=== PATIENT | male | born 1970 | race Caucasian/White ===

== ENCOUNTER 2017-02-05 06:52 | Inpatient (IN) | payer BC ==
[~2017-02-05] VITALS: Ht 182.9 cm; Wt 111.7 kg
[~2017-02-05 06:52] MED LIST: DEPAKOTE ER250 M1 PO; FLA500 PO; LAC PO; LEVOFLOXACIN500 M1 PO; MOT400 PO
[2017-02-05 07:44] LABS: PLATELET COUNT 214 x10^3mcL (130-400); RED CELL DISTRIBUTION WIDTH 12.1 % (11.5-14.5)
[2017-02-05 07:56] LABS: CARBON DIOXIDE 23.9 mmol/L (21-32); CHLORIDE SERUM 106 mmol/L (98-107); CREATININE SERUM 1.1 mg/dL (0.7-1.3); GFR1 > 60 mL/min; GLUCOSE SERUM 121 mg/dL (74-106); POTASSIUM SERUM 4.9 mmol/L (3.5-5.1); SODIUM SERUM 141 mmol/L (136-145)
[2017-02-05 08:08] LABS: ALKALINE PHOSPHATASE 102 U/L (46-116); ALT/SGPT 70 U/L (16-63); AST/SGOT 35 U/L (15-37); TOTAL PROTEIN, SERUM 7.3 g/dL (6.4-8.2)
[2017-02-05 09:33] LABS: BAND NEUTROPHIL 18 % (0-10); BASOPHIL 0 % (0-2); MONOCYTE 5 % (0-7); SEGMENTED NEUTROPHILS 72 % (37-75)
[2017-02-05] MEDS ORDERED: RISPERDAL0.25 MG (10:13)
[2017-02-05] MEDS ORDERED: LAMICTAL CD5 MG (10:13)
[2017-02-05] MEDS ORDERED: ATIVAN0.5 M1 (10:13)
[2017-02-05 13:38] VITALS: BP 122/76
[2017-02-05 13:58] VITALS: BP 122/76
[2017-02-05 15:08] LABS: PHOSPHOROUS 2.3 mg/dL (2.5-4.9); T3 TOTAL 1.22 ng/mL
[2017-02-05 15:10] LABS: CHOLESTEROL/HDL RATIO 3.4; MAGNESIUM 1.7 mg/dL (1.8-2.4)
[2017-02-05 15:24] LABS: FREE T4 1.23 ng/dL (0.76-1.46); FREE THYROXINE INDEX 3.3 ug/dL (1.4-4.5)
[2017-02-05 17:11] LABS: UA SPECIFIC GRAVITY 1.025 (1.005-1.035); microscopic required? YES; urine erythrocyte NEGATIVE (NEGATIVE)
[2017-02-05 18:47] VITALS: BP 128/86
[2017-02-05 21:23] LABS: AMPHETAMINE QUAL UR NONE DETECTED (NEG <=1000)
[2017-02-05 22:28] VITALS: BP 128/84
[2017-02-06] VITALS: Ht 182.9 cm; Wt 111.7 kg
[2017-02-06 06:07] VITALS: BP 146/86
[2017-02-06 07:17] LABS: BASOPHIL % 0.3 % (0-2); PLATELET COUNT 194 x10^3mcL (130-400); RED CELL DISTRIBUTION WIDTH 12.6 % (11.5-14.5)
[2017-02-06 07:50] LABS: CALCIUM 7.4 mg/dL (8.5-10.1); CHLORIDE SERUM 106 mmol/L (98-107); GFR1 > 60 mL/min; GLUCOSE SERUM 113 mg/dL (74-106); POTASSIUM SERUM 3.7 mmol/L (3.5-5.1); SODIUM SERUM 138 mmol/L (136-145)
[2017-02-06 10:30] VITALS: BP 124/82
[2017-02-06 13:12] VITALS: BP 138/87
[2017-02-06] MEDS ORDERED: FLA500 PO ×2 (18:01→18:02)
[2017-02-06 18:07] VITALS: BP 118/64
[2017-02-06 19:09] VITALS: BP 118/64
[2017-02-06] MEDS ORDERED: ZOFRAN ODT4 MG SL (19:44)
== END 2017-02-06 20:02 | disposition home or self-care (01) | DRG 392 ==
LOC: ED 06:52 → DU 10:43
PROVIDERS: Emergency Medicine; ADMIT Family Medicine
DX: A08.4 Viral intestinal infection, unspecified (principal); E86.0 Dehydration; E83.42 Hypomagnesemia; E83.39 Other disorders of phosphorus metabolism; E78.5 Hyperlipidemia, unspecified; F31.9 Bipolar disorder, unspecified; Z68.33 Body mass index [BMI] 33.0-33.9, adult
CPT/HCPCS: 80307; 83880; 84439; 87046; 87046-59; J1200; J1885; J1956; J2405; J2765; J3490; J7030; Q0092; Q0163; Q9966; Q9967

== ENCOUNTER 2018-02-28 12:24 | Emergency (ER) | payer BC ==
[~2018-02-28] VITALS: Ht 182.9 cm; Wt 97.1 kg
[~2018-02-28 12:24] MED LIST changes: +ATIVAN0.5 M1; +LAMICTAL CD5 MG; +RISPERDAL0.25 MG; +ZOFRAN ODT4 MG SL
[2018-02-28 12:29] VITALS: Ht 182.9 cm; Wt 97.1 kg
[2018-02-28 13:06] LABS: BASOPHIL % 0.5 % (0-2); PLATELET COUNT 252 x10^3mcL (130-400); RED CELL DISTRIBUTION WIDTH 13.4 % (11.5-14.5)
[2018-02-28 13:18] LABS: CARBON DIOXIDE 23.8 mmol/L (21-32); CHLORIDE SERUM 104 mmol/L (98-107); GFR1 > 60 mL/min; GLUCOSE SERUM 112 mg/dL (74-106); POTASSIUM SERUM 4.2 mmol/L (3.5-5.1); SODIUM SERUM 139 mmol/L (136-145)
[2018-02-28 13:22] LABS: ALBUMIN 4.1 g/dL (3.4-5.0); ALKALINE PHOSPHATASE 93 U/L (46-116); ALT/SGPT 37 U/L (16-63); AMYLASE 72 U/L (25-115); AST/SGOT 20 U/L (15-37); BILIRUBIN TOTAL 0.4 mg/dL (0.20-1.00); LIPASE 234 IU/L (73-393); TOTAL PROTEIN, SERUM 7.8 g/dL (6.4-8.2)
[2018-02-28 13:28] LABS: UA SPECIFIC GRAVITY <=1.005 (1.005-1.035); microscopic required? YES; urine erythrocyte TRACE (NEGATIVE)
[2018-02-28 14:04] VITALS: BP 119/79
== END 2018-02-28 14:04 | disposition home or self-care (01) ==
LOC: ED 12:24
PROVIDERS: Emergency Medicine
DX: K65.4 Sclerosing mesenteritis (principal); F31.9 Bipolar disorder, unspecified; Z88.1 Allergy status to other antibiotic agents; Z88.5 Allergy status to narcotic agent; Z88.6 Allergy status to analgesic agent
CPT/HCPCS: 83880; J3010; J7030

== ENCOUNTER 2018-10-05 14:57 | Inpatient (IN) | payer BC ==
[~2018-10-05] VITALS: Ht 182.9 cm; Wt 103.4 kg
[2018-10-05 15:03] VITALS: Ht 182.9 cm; Wt 103.4 kg
--- NOTE | 2018-10-05 15:09 | NUR ---
NO SOB NOTED, C/O CHEST PAIN, PT CAME FROM URGENT CARE. EKG DONE, SHOWN TO ER MD.
--- NOTE | 2018-10-05 16:29 | NUR ---
PT BIB FAMILY C/C CP CORPORATE DIRECTOR DR TORRES AT BEDSIDE TO [facility]
--- NOTE | 2018-10-05 17:15 | NUR ---
MEDICATED WITH ZOFRAN IVP. NS BOLUS INFUSING AT THIS TIME.
--- NOTE | 2018-10-05 17:31 | NUR ---
PLEASE ENTER FULL NAMES OF TAXI DANCER/RN Patient data collected by (TAXI DANCER):MICHELLE TAXI DANCER Assessment reviewed and completed by (RN): GERBER ALBERTO
[2018-10-05 17:43] LABS: PLATELET COUNT 189 x10^3mcL (130-400); RED CELL DISTRIBUTION WIDTH 12.6 % (11.5-14.5)
[2018-10-05 17:54] LABS: CARBON DIOXIDE 25.4 mmol/L (21-32); CHLORIDE SERUM 99 mmol/L (98-107); CREATININE SERUM 1.4 mg/dL (0.7-1.3); GFR1 57 mL/min; GLUCOSE SERUM 99 mg/dL (74-106); POTASSIUM SERUM 3.9 mmol/L (3.5-5.1); SODIUM SERUM 135 mmol/L (136-145)
[2018-10-05 18:06] LABS: ALBUMIN 4.2 g/dL (3.4-5.0); ALKALINE PHOSPHATASE 79 U/L (46-116); ALT/SGPT 31 U/L (16-63); AMYLASE 63 U/L (25-115); AST/SGOT 22 U/L (15-37); BILIRUBIN TOTAL 1.06 mg/dL (0.20-1.00); CHOLESTEROL 185 mg/dL (<200); HDL CHOLESTEROL 52 mg/dL (40-60); LIPASE 145 IU/L (73-393); T4(THYROXINE) 7.5 ug/dL (4.7-13.3)
[2018-10-05 18:18] LABS: TOTAL PROTEIN, SERUM 8.6 g/dL (6.4-8.2)
[2018-10-05 18:19] LABS: BAND NEUTROPHIL 7 % (0-10); METAMYELOCTE 3 % (0-2); MONOCYTE 8 % (0-7); SEGMENTED NEUTROPHILS 74 % (37-75)
[2018-10-05 18:20] LABS: PLATELET MORPHOLOGY PLATELETS NORMAL; rbc morphology (normal/abnorm) NORMAL (NORMAL)
--- NOTE | 2018-10-05 19:08 | NUR ---
RECEIVED REPORT FROM DOLLY MORELAND FOR CONTINUITY OF PT CARE.
--- NOTE | 2018-10-05 19:24 | NUR ---
PT MEDICATED ORDERED, NO ACUTE DISTRESS NOTED, BREATHING E/U, AT BEDSIDE.
[2018-10-05 19:43] LABS: UA SPECIFIC GRAVITY 1.015 (1.005-1.035); microscopic required? YES; urine erythrocyte TRACE (NEGATIVE)
[2018-10-05 19:57] LABS: AMPHETAMINE QUAL UR NONE DETECTED (See below)
[2018-10-05] MEDS ORDERED: LAM100 PO (20:56)
[2018-10-05] MEDS ORDERED: SEROQUEL25 MG PO (20:56)
[2018-10-05] MEDS ORDERED: OMEPRAZOLE10 M1 PO (20:57)
--- NOTE | 2018-10-05 21:04 | NUR ---
REPORT GIVEN TO DOLLY VASQUES FOR CONTINUITY OF PT CARE.
[2018-10-05 21:48] VITALS: BP 120/81
--- NOTE | 2018-10-05 21:58 | NUR ---
RECEIVED PT FROM ER. PT ADMIT FOR CHEST PAIN, PT IS A/O X4, VERBAL RESPONSIVE, ABLE TO TELL WHAT HE NEEDS. LUNG SOUND CLEAR BILATERAL, NO COUGH, NO SOB, PT IS ON TELE 20, NSR. C/O CHEST PAIN 4/10, BOWEL SOUND PRESENT ALL 4 QUADRANTS, NO DISTENTION, NO TENDER. PEDAL PULSE PRESENT BOTH FEET, NO EDEMA, IV AT RIGHT HAND, NO LEAKING, NO INFILTRATION. ALL ADLS ASSIST, ALL NEED MET, CALL LIGHT IN REACH, WILL CONTINUE TO MONITOR.
--- NOTE | 2018-10-05 22:29 | NUR ---
PT IS ALERT AND AWAKE. DENIES ANY CHEST PAIN AT THIS TIME. ON TELE # 20, NSR. PULSES PRESENT. NO EDEMA. LUNGS CLEAR IN ALL FEILDS. ON RA, EQUAL CHEST RISE AND FALL. PT C/O DIARRHEA FOR COUPLE DAYS NOW. DENIES ANY OTHER ABNORMAILITY. SALINE LOCKED ON RH. SITE CLEAN AND INTACT. BED AT LOWEST SETTING. CALL LIGHT WITHIN REACH. WILL CONTINUE TO MONTIOR.
--- NOTE | 2018-10-05 23:26 | NUR ---
GAVE 12.5MG OF 25MG PHENERGAN. MD IS AWARE. PT HAS NAUSEA AND REQUESTING THE MEDICATION. PER HOSP PROTOCOL ONLY ALLOWED TO GIVE 12.5MG PER DOSE ONLT. MD TO CHANGE ORDER, MD OK TO GIVE 12.5MG INSTEAD OF THE 25MG ORDERED. WILL CONTINUE TO MONITOR.
[2018-10-05 23:58] VITALS: BP 111/73
--- NOTE | 2018-10-06 01:31 | NUR ---
PT IS RESTING IN BED. DENIES ABD DISTRESS AT THIS TIME. PT STILL HAS DIARRHEA. 5 BM SINCE ADMISSION. IV INTACT AND PATENT. NO SIGN OF REDNESS NOTED. BED AT LOWEST SETTING. CALL LIGHT WITHIN REACH. WILL CONTINUE TO MONTIOR.
[2018-10-06 02:21] VITALS: BP 111/73
--- NOTE | 2018-10-06 02:59 | NUR ---
PT COMPLAINING OF ABD DISCOMFORT. /10 PAIN. GAVE PER EMAR PRN TORADOL. PT IS STILL HAVING MULITPLE LOOSE/WATERY BMS. WILL GIVE PRN LOMOTIL PER EMAR. PT COMFORTABLE IN BED. WILL CONTINUE TO MONTIOR.
[2018-10-06 05:09] VITALS: BP 113/71
[2018-10-06 07:03] LABS: RED CELL DISTRIBUTION WIDTH 12.3 % (11.5-14.5)
--- NOTE | 2018-10-06 07:04 | NUR ---
PT RESTING IN BED. STILL HAVING MULTIPLE LOOSE/WATERY STOOLS. GAVE PRN MEDICATION PER EMAR. NO OTHER COMPLAINTS. NO ACUTE EVENT OCCURED AT NIGHT. BED AT LOWEST SETTING. CALL LIGHT WITHIN REACH. WILL ENDORSE TO AM NURSE.
[2018-10-06 07:05] LABS: CALCIUM 8.1 mg/dL (8.5-10.1); CARBON DIOXIDE 22.7 mmol/L (21-32); CHLORIDE SERUM 104 mmol/L (98-107); CREATININE SERUM 1.2 mg/dL (0.7-1.3); GFR1 > 60 mL/min; GLUCOSE SERUM 92 mg/dL (74-106); POTASSIUM SERUM 3.9 mmol/L (3.5-5.1); SODIUM SERUM 136 mmol/L (136-145)
[2018-10-06 07:11] LABS: CHOLESTEROL/HDL RATIO 3.9
--- NOTE | 2018-10-06 07:30 | NUR ---
RECEIVED PATIENT IN BED, AWAKE, ALERT AND ORIENTED. HL PATENT RT F/A FLUSHED WELL. PER PATIENT HE IS STILL HAVING DIARRHEA, BUT THAT IT HAS ONLY BEEN TWO EPISODES SINCE NOC RN GAVE HIM LOMOTIL AROUND 6AM. C/O FEELING A LITTLE NAUSEATED AT THIS TIME, AND MILD LOWER ABD CRAMPING LIKE PAIN. AMBULATES AD PAT TO THE BATHROOM. TELE 22 NSR. WILL CONTINUE TO MONITOR.
[2018-10-06 07:41] VITALS: BP 125/85
--- NOTE | 2018-10-06 08:12 | NUR ---
PATIENT'S PLAN OF CARE WAS DISCUSSED AND REVIEWED WITH HOLLOW HANDLE KNIFE ASSEMBLER:DUNCAN HANSON
[2018-10-06 09:00] LABS: PLATELET COUNT 125 x10^3mcL (130-400)
[2018-10-06 09:06] LABS: ATYPICAL LYMPH 11 %; BAND NEUTROPHIL 1 % (0-10); BASOPHIL 0 % (0-2); MONOCYTE 49 % (0-7); PLATELET MORPHOLOGY PLATELETS DECREASED; SEGMENTED NEUTROPHILS 30 % (37-75); rbc morphology (normal/abnorm) ABNORMAL (NORMAL)
[2018-10-06 12:30] VITALS: BP 126/80
--- NOTE | 2018-10-06 13:16 | NUR ---
PATIENT APPEARS TO HAVE RESTED WELL THIS AM. CONSUMED CLEAR LIQUID DIET WELL, THEN HAD A WATERY STOOL AND LOWER ABD CRAMPING. MEDICATED WITH LOMITOL AND TORADOL ORDERED. WILL CONTINUE TO MONITOR.
[2018-10-06 15:43] VITALS: BP 116/79
--- NOTE | 2018-10-06 15:46 | NUR ---
DR MEJIA INTO SEE PATIENT AT THIS TIME. EKG DONE AND NEW ORDER FOR ABD US RECEIVED. NO ACUTE DISTRESS NOTED. WILL CONTINUE TO MONITOR.
--- NOTE | 2018-10-06 18:28 | NUR ---
PATIENT SITTING UP IN BED EATING DINNER TRAY WITH AT BEDSIDE. PER PATIENT HE STATES, "I HAVE HAD 55 BM'S SINCE TUESDAY." LOMOTIL GIVEN FOR LOOSE STOOLS AT THIS TIME AND TYLENOL FOR C/O H/A 5/10 ON THE PAIN SCALE. US ABD DONE. PATIENT AWAITING CONSULT WITH DR LEVY. NO ACUTE DISTRESS NOTED. WILL CONTINUE TO MONITOR.
--- NOTE | 2018-10-06 18:46 | NUR ---
I HAVE REVIEWED THE DATA COLLECTION BY LUI (NAME):DUNCAN HANSON ENTERED ON (DATE/TIME):10/06 FROM 7A-7PM I CONCUR WITH THE DATA AND ANY EXCEPTIONS OR COMMENTS ARE LISTED BELOW:
--- NOTE | 2018-10-06 19:25 | NUR ---
AOX4. TELE #20, SR. LUNGS CLEAR ON RA. PULSES PALPABLE. NO EDEMA. BOWEL SOUNDS ACTIVE. C/O MULTIPLE WATERY BM'S TODAY. VOIDS FREELY. AMBULATORY. SKIN INTACT. IV TO RFA, SL, PATENT. DENIES PAIN/CP AT THIS TIME. AT BEDSIDE. BED IN LOWEST POSITION, 2 SIDERAILS UP, CALL LIGHT IN REACH. INSTRUCTED TO CALL FOR ASSISTANCE.
[2018-10-06 21:04] VITALS: BP 117/77
--- NOTE | 2018-10-07 02:53 | NUR ---
IV TO RFA FOUND SWOLLEN, REDDENED, TENDER. IV D/C INTACT, ELEVATED, WARM COMPRESS APPLIED. NEW IV ACCESS TO LFA 22G AND SL'D, BY KIMI RN. NO ACUTE DISTRESS NOTED. WILL CONTINUE TO MONITOR.
[2018-10-07 06:23] VITALS: BP 110/74
[2018-10-07 07:08] LABS: PLATELET COUNT 159 x10^3mcL (130-400); RED CELL DISTRIBUTION WIDTH 12.4 % (11.5-14.5)
[2018-10-07 07:13] LABS: CALCIUM 8.3 mg/dL (8.5-10.1); CHLORIDE SERUM 103 mmol/L (98-107); CREATININE SERUM 1.2 mg/dL (0.7-1.3); GFR1 > 60 mL/min; GLUCOSE SERUM 110 mg/dL (74-106); POTASSIUM SERUM 3.8 mmol/L (3.5-5.1); SODIUM SERUM 137 mmol/L (136-145)
--- NOTE | 2018-10-07 07:20 | NUR ---
SEEN IN BED AAOX4. STATED LOWER ABDOMINAL PAIN IS RELIEF AFTER PAIN MEDICINE GIVEN [place] METALLURGICAL ANALYST RN. BREATHING E/U ON ROOM AIR. ON CLEAR LIQUID DIET. DENIES NAUSEA AT THIS TIME. S/L TO LFA WITH INTACT/PATENT. OLD IV SITE TO RFA NOTED REDNESS PATIENT STATED IT LOOKS MUCH BETTER NOW, KEPT ELEVATED ON PILLOW WITH WARM COMPRESS. PLAN OF CARE INFORMED, CALL LIGHT PLACED WITHIN EASY REACH. SIDERAILS UP X2.
[2018-10-07 09:50] VITALS: BP 112/81
--- NOTE | 2018-10-07 10:30 | NUR ---
SEEN BY ATILIO LEVY. PER DOCTOR LEVY PATIENT IS OK TO BE DISCHARGED.
--- NOTE | 2018-10-07 11:30 | NUR ---
SEEN BY DOCTOR ALISSA, NOTED DISCHARGE HOME ORDER MADE.
[2018-10-07 11:32] VITALS: BP 112/81
--- NOTE | 2018-10-07 12:42 | NUR ---
DISCHARGE INSTRUCTION/PRESCRIPTION EXPLAINED AND GIVEN TO PATIENT AND HIS SPOUSE, VERBALIZED UNDERSTANDING. S/L TO LFA REMOVED WITH CATHETER INTACT NO INFILTRATION OR SIGNS OF INFECTION NOTED. CONDITION STABLE UPON DISCHARGE. ACCOMPANIED BY ME TO LOBBY WITHOUT ANY DIFFICULTY. DISCHARGE HOME BY PRIVATE AUTO PICKED UP HIS SPOUSE.
[2018-10-07 16:57] LABS: SEGMENTED NEUTROPHILS 47 % (37-75)
[2018-10-07 16:58] LABS: BAND NEUTROPHIL 17 % (0-10); MONOCYTE 15 % (0-7); rbc morphology (normal/abnorm) NORMAL (NORMAL)
[2018-10-07 16:59] LABS: PLATELET MORPHOLOGY PLT CLUMPS SEEN
== END 2018-10-07 12:37 | disposition home or self-care (01) | DRG 872 ==
LOC: ED 14:57 → DU 20:10
PROVIDERS: Emergency Medicine; ADMIT Internal Medicine
DX: A41.9 Sepsis, unspecified organism (principal); I24.9 Acute ischemic heart disease, unspecified; A04.72 Enterocolitis due to Clostridium difficile, not specified as recurrent; K52.9 Noninfective gastroenteritis and colitis, unspecified; F31.9 Bipolar disorder, unspecified; K57.30 Diverticulosis of large intestine without perforation or abscess without bleeding; F41.9 Anxiety disorder, unspecified; K21.9 Gastro-esophageal reflux disease without esophagitis; I25.10 Atherosclerotic heart disease of native coronary artery without angina pectoris; Z68.29 Body mass index [BMI] 29.0-29.9, adult; Z88.8 Allergy status to other drugs, medicaments and biological substances; Z88.5 Allergy status to narcotic agent; Z88.1 Allergy status to other antibiotic agents; Z87.11 Personal history of peptic ulcer disease; Z84.89 Family history of other specified conditions; Z80.42 Family history of malignant neoplasm of prostate; Z83.79 Family history of other diseases of the digestive system
CPT/HCPCS: 82962; 83880; 87804; C9113; J1885; J1956; J2405; J2550; J7030; J7050; Q0092

== ENCOUNTER 2020-04-02 08:30 | Inpatient (IN) | payer BC, OTHER ==
[~2020-04-02] VITALS: Ht 182.9 cm; Wt 110.2 kg
[~2020-04-02 08:30] MED LIST changes: +LAM100 PO; +OMEPRAZOLE10 M1 PO; +SEROQUEL25 MG PO
[2020-04-02 08:48] VITALS: Ht 182.9 cm; Wt 110.2 kg
[2020-04-02 09:30] LABS: microscopic required? NO
[2020-04-02 09:37] LABS: BASOPHIL % 0.7 % (0-2); PLATELET COUNT 232 x10^3mcL (130-400); RED CELL DISTRIBUTION WIDTH 12.5 % (11.5-14.5)
[2020-04-02 09:49] LABS: urine erythrocyte NEGATIVE (NEGATIVE)
[2020-04-02 10:09] LABS: ALKALINE PHOSPHATASE 67 U/L (46-116); ALT/SGPT 34 U/L (16-63); AST/SGOT 16 U/L (15-37); BILIRUBIN TOTAL 1.04 mg/dL (0.20-1.00); CARBON DIOXIDE 22.6 mmol/L (21-32); CHLORIDE SERUM 103 mmol/L (98-107); GFR1 > 60 mL/min; GLUCOSE SERUM 104 mg/dL (74-106); LIPASE 138 IU/L (73-393); POTASSIUM SERUM 3.6 mmol/L (3.5-5.1); SODIUM SERUM 136 mmol/L (136-145); TOTAL PROTEIN, SERUM 7.4 g/dL (6.4-8.2)
[2020-04-02 10:35] LABS: CALCIUM 8.7 mg/dL (8.5-10.1)
[2020-04-02] MEDS ORDERED: ARICEPT10 MG PO (11:16)
[2020-04-02] MEDS ORDERED: ACID REDUCER20 MG PO (11:17)
[2020-04-02] MEDS ORDERED: NAMENDA10 M2 PO (11:17)
[2020-04-02 14:50] VITALS: BP 110/75
[2020-04-02 17:30] VITALS: BP 106/70
[2020-04-02 21:00] VITALS: BP 103/64
[2020-04-03 05:40] VITALS: BP 100/52
[2020-04-03 08:28] VITALS: BP 103/65
[2020-04-03 08:40] LABS: BASOPHIL % 1.9 % (0-2); PLATELET COUNT 185 x10^3mcL (130-400); RED CELL DISTRIBUTION WIDTH 12.9 % (11.5-14.5)
[2020-04-03 08:46] LABS: CARBON DIOXIDE 25.2 mmol/L (21-32); CHLORIDE SERUM 105 mmol/L (98-107); CREATININE SERUM 1.1 mg/dL (0.7-1.3); GFR1 > 60 mL/min; GLUCOSE SERUM 97 mg/dL (74-106); SODIUM SERUM 140 mmol/L (136-145)
[2020-04-03 12:43] VITALS: BP 104/67
[2020-04-03 15:18] VITALS: BP 104/67
== END 2020-04-03 16:03 | disposition home or self-care (01) | DRG 392 ==
LOC: ED 08:30 → MU 11:09
PROVIDERS: Emergency Medicine; ADMIT Internal Medicine; ATTEND Internal Medicine
DX: K57.92 Diverticulitis of intestine, part unspecified, without perforation or abscess without bleeding (principal); F31.9 Bipolar disorder, unspecified; I10 Essential (primary) hypertension; Z80.42 Family history of malignant neoplasm of prostate; D72.829 Elevated white blood cell count, unspecified; Z88.8 Allergy status to other drugs, medicaments and biological substances
CPT/HCPCS: G0378; J1956; J2270; J2405; J2550; J3010; J3490; J7030; J7050

== ENCOUNTER 2020-08-10 15:44 | Emergency (ER) | payer BC, OTHER ==
[~2020-08-10] VITALS: Ht 182.9 cm; Wt 109.8 kg
[~2020-08-10 15:44] MED LIST changes: +ACID REDUCER20 MG PO; +ARICEPT10 MG PO; +NAMENDA10 M2 PO
[2020-08-10 15:55] VITALS: BP 111/76; Ht 182.9 cm; Wt 109.8 kg
== END 2020-08-10 17:52 | disposition home or self-care (01) ==
LOC: ED 15:44
DX: K57.32 Diverticulitis of large intestine without perforation or abscess without bleeding (principal); F31.9 Bipolar disorder, unspecified; F43.10 Post-traumatic stress disorder, unspecified; E66.9 Obesity, unspecified; Z68.32 Body mass index [BMI] 32.0-32.9, adult; Z90.89 Acquired absence of other organs; Z88.6 Allergy status to analgesic agent; Z88.5 Allergy status to narcotic agent; Z88.8 Allergy status to other drugs, medicaments and biological substances
CPT/HCPCS: J1885

== ENCOUNTER 2020-09-18 21:38 | Inpatient (IN) | payer BC, OTHER ==
[~2020-09-18] VITALS: Ht 182.9 cm; Wt 108.4 kg
[2020-09-18 21:55] VITALS: Ht 182.9 cm; Wt 108.4 kg
--- NOTE | 2020-09-18 23:26 | NUR ---
PT BIB SELF FOR ACUTE DIVERTICULITIS ATTACK TODAY. PT ABD IS SOFT, FLAT, AND NON-RIGID. PT STS MEDIUM BROWNISH LIQUID STOOL X1 WEEK. PT DENIES ANY NV. PT HAS HX OF DIVERTICULITIS X10-15 YEARS. PT A&O X4, RESP E/U, EQUAL RISE AND FALL OF CHEST, AND NO DISTRESS NOTED. WILL CONTINUE TO MONITOR.
[2020-09-18 23:44] LABS: CALCIUM 8.1 mg/dL (8.5-10.1); CARBON DIOXIDE 20.3 mmol/L (21-32); CHLORIDE SERUM 101 mmol/L (98-107); CREATININE SERUM 0.9 mg/dL (0.7-1.3); GFR1 > 60 mL/min; GLUCOSE SERUM 145 mg/dL (74-106); POTASSIUM SERUM 3.6 mmol/L (3.5-5.1); SODIUM SERUM 138 mmol/L (136-145)
[2020-09-18 23:47] LABS: ALBUMIN 3.6 g/dL (3.4-5.0); ALKALINE PHOSPHATASE 74 U/L (46-116); BILIRUBIN TOTAL 0.8 mg/dL (0.20-1.00); LIPASE 150 IU/L (73-393); TOTAL PROTEIN, SERUM 7.3 g/dL (6.4-8.2)
[2020-09-19 00:26] LABS: BASOPHIL % 1.2 % (0-2); PLATELET COUNT 283 x10^3mcL (130-400); RED CELL DISTRIBUTION WIDTH 11.8 % (11.5-14.5)
--- NOTE | 2020-09-19 00:47 | NUR ---
PT A&O X4, RESP E/U, EQUAL RISE AND FALL OF CHEST, AND NO DISTRESS. WILL CONTINUE TO MONITOR.
[2020-09-19 01:01] LABS: ALT/SGPT 52 U/L (16-63); AST/SGOT 22 U/L (15-37)
[2020-09-19] MEDS ORDERED: AMBIEN CR12.5 MG PO (01:25)
--- NOTE | 2020-09-19 03:17 | NUR ---
# 3 ANTIBIOTIC STARTED. PATIENT REQUESTED PAIN MEDICATION. MORPHINE GIVEN.
--- NOTE | 2020-09-19 04:29 | NUR ---
PATIENT IS ON HIS OWN PERSONAL CPAP MACHINE. RESTING WITH EYDES CLOSED.
--- NOTE | 2020-09-19 07:00 | NUR ---
SURGEON AT THE BEDSIDE TALKING TO THE PATIENT THAT HE WILL BVE TAKEN TO OR TO DRAIN THE INFECTIOUS SWELLING ON THE LEFT GROIN. BLOOD PRESSURE IS NOW 93/59 POST 2 LITERS OF FLUID.
--- NOTE | 2020-09-19 07:37 | NUR ---
PATIENT IS ADMITTED, WAITING FOR A BED. REPORT ENDORSED TO THE AM STAFF.
--- NOTE | 2020-09-19 07:38 | NUR ---
RESPIRATORY AT THE BEDSIDE ABG WAS DONE. FINGERSTICK BLOOD SUGAAR IS 373 MG/DL. DR SIDDIQUI ORDERED COVERAGE.
--- NOTE | 2020-09-19 09:00 | NUR ---
SITTING UP IN BED. REMARKS HAS LOWER ABD PAINS. NO GUARDING OBSERVED
--- NOTE | 2020-09-19 11:15 | NUR ---
ATTEMPT MADE TO CALL PCP. UNABLE TO GET ORDERS FOR PAIN MEDS. PT REMARKS HE CAN'T VOID AT THIS TIME. IT HURST TOO MUCHN
--- NOTE | 2020-09-19 13:45 | NUR ---
NO GRIMACING OBSERVED AT THIS TIME. SKIN DRY. RESPS NON LABORED. CONTINUES WAITING FOR ROOM ASSIGNMENT.
--- NOTE | 2020-09-19 15:48 | NUR ---
MEDICATED ORDERED FOR PAIN (WITH MORPHINE) AND UPSET STOMACH (WITH PHENERGAN)
--- NOTE | 2020-09-19 17:44 | NUR ---
SLEEPING SOUNDLY AT THIS TIME AFTER WAS MEDICATED FOR PAIN AND NAUSEA
--- NOTE | 2020-09-19 19:20 | NUR ---
REPORT RECIEVED FROM DOLLY GARCIA. I WILL ASSUME FURTHER CARE OF THIS PT. PT NOTED LAYING SUPINE IN ER [place] TALKING ON CELL PHONE. PT REPORTS PAIN 6/10 AT THIS TIME AND DECREASED PAIN WITH URINATION. PT AAOX4, SPEAKING IN FULL, CLEAR SENTENCES. O2SAT 98% ON ROOM AIR. PT AWARE OF ADMIT STATUS. WILL CONTINUE TO MONITOR
--- NOTE | 2020-09-19 22:31 | NUR ---
PT REQUESTING WATER AND JELLO. PT MEDICATED PER MD ORDERS FOR N/V. PT PROVIDED JELLO AND WATER. PT SITTING IN HIGH FOWLERS IN GURNEY IN A POSITION OF COMFORT. PT AAO X4 RESPIRATIONS E/U NO DISTRESS NOTED.
--- NOTE | 2020-09-20 00:49 | NUR ---
PT MEDICATED PER DR ORDERS FOR PAIN. PT REQUESTING MEDICATION FOR NAUSEA AT THIS TIME.
[2020-09-20 07:02] LABS: BASOPHIL % 1.1 % (0.2-1.5); PLATELET COUNT 217 x10^3mcL (152-348); RED CELL DISTRIBUTION WIDTH 12.6 % (12.1-16.2)
--- NOTE | 2020-09-20 07:24 | NUR ---
SPOKE WITH DR. MAXWELL FOR MED ORDER PANTOPRAZOLE 40mg PO, PHARMACY DOES NOT CARRY PO PANTOPRAZOLE THEY ONLY CARRY 40mg IVP, DR. MAXWELL OK VERBAL ORDER FOR PANTOPRAZOLE 40mg IVP.
[2020-09-20 07:52] LABS: CALCIUM 8.8 mg/dL (8.5-10.1); CARBON DIOXIDE 26.9 mmol/L (21-32); CHLORIDE SERUM 102 mmol/L (98-107); CREATININE SERUM 0.9 mg/dL (0.7-1.3); GFR1 > 60 mL/min; GLUCOSE SERUM 107 mg/dL (74-106); SODIUM SERUM 138 mmol/L (136-145)
--- NOTE | 2020-09-20 07:57 | NUR ---
RECEIVED REPORT FROM LEEANN ALBERTO, ASSUMING CARE OF PT AT THIS TIME.
--- NOTE | 2020-09-20 08:20 | NUR ---
PT MEDICATED PER MD ORDER, IV IN RIGHT AC 20G FLUSHED WITH 10mL PRIOR TO ADMINISTRATION, NO COMPLICATIONS, IN POSITION OF COMFORT, CALL LIGHT WITHIN REACH, LEFT SIDE RAIL UP, BED IN LOW POSITION, ON FULL FRUIT CHECKER, PAIN 5/10, PT REQUESTS PRN MORPHINE FOR PAIN
--- NOTE | 2020-09-20 09:05 | NUR ---
PT MEDICATED PER MD ORDER, DAVID HASSAN PT IN NAD AT THIS TIME, AAO.
--- NOTE | 2020-09-20 11:18 | NUR ---
PT LAYING IN BED IN POSITION OF COMFORT, IN NAD AT THIS TIME, AAO, V/S STABLE, BED IN LOW POSITION, LEFT SIDE RAIL UP, CALL LIGHT WITHIN REACH, AWAITING BED FOR ADMIT.
--- NOTE | 2020-09-20 11:27 | NUR ---
ASSISTED PT TO RESTROOM, STEADY GAIT AND BALANCE.
--- NOTE | 2020-09-20 11:38 | NUR ---
PT REPORTS NORMAL BM, NO PAIN, NO BLOOD.
--- NOTE | 2020-09-20 12:43 | NUR ---
PT LAYING IN BED, HOB ELEVATED, EATING LUNCH.
--- NOTE | 2020-09-20 14:14 | NUR ---
PT LAYING IN BED, IN POSITION OF COMFORT, CONVERSING ON PHONE WITH SPOUSE, IN NAD AT THIS TIME, AAO, V/S STABLE, BED IN LOW POSITION, LEFT SIDE RAIL UP, CALL LIGHT WITHIN REACH, PT REPORTS NO PAIN, ON FULL LEATHER SHAVER.
--- NOTE | 2020-09-20 15:15 | NUR ---
PT LAYING IN BED, WATCHING ON PERSONAL TABLET, IN POSITION OF COMFORT, IN NAD AT THIS TIME, AAO, V/S STABLE, CALL LIGHT WITHIN REACH, BED IN LOW POSITION, LEFT SIDE RAIL UP.
--- NOTE | 2020-09-20 16:56 | NUR ---
PT RESTING IN BED
--- NOTE | 2020-09-20 17:39 | NUR ---
PT STATES "I HAVE NOT SEEN A DOCTOR IN TWO DAYS," CALLED DR. MAXWELL, DR. MAXWELL STATED THAT DR. OLSON, GI CONSULT, WILL NOT SEE PT UNTIL HE RECEIVES BED UPSTAIRS, NING ALBERTO CONTACTED DR. MAXWELL AGAIN, AND EXPLAINED TO DR AGUSTIN THAT THE PT NEEDS TO BE SEEN BY A MD Q [address] AGUSTIN SAID HE WILL TRY TO GET SOMEONE TO COME SEE THE PT. PT NOTIFIED OF STATUS
--- NOTE | 2020-09-20 17:56 | NUR ---
I CALLED ALISSA SEGOVIA I SPOKE WITH HIM IN REGARDS PT WANTS TO GO HOME. PER ALISSA SEGOVIA HE WILL COME IN 2 HOURS TO SEE PT
--- NOTE | 2020-09-20 18:32 | NUR ---
PT SITTING IN BED, WATCHING PERSONAL TABLET, IN NAD AT THIS TIME, AAO, V/S STABLE, ON FULL NATURAL RESOURCE ECONOMIST, BED IN LOW POSITION, LEFT SIDE RAIL UP, CALL LIGHT WITHIN REACH.
--- NOTE | 2020-09-20 18:54 | NUR ---
PT SELF AMBULATED TO RESTROOM, STEADY GAIT AND BALANCE.
--- NOTE | 2020-09-20 19:13 | NUR ---
REPORT RECEIVED FROM DOLLY HANNA. I WILL ASSUME FURTHER CARE OF THIS PT
--- NOTE | 2020-09-20 19:13 | NUR ---
REPORT GIVEN TO JOSE J ALBERTO
--- NOTE | 2020-09-20 19:35 | NUR ---
PT NOTED LAYING IN ER GURNEY PLAYING ON IPAD. PT DENIES ANY PAIN AT THIS TIME AND STATES "I FEEL LIKE IM READY TO GO HOME". PT REPORTS "I ONLY HAVE PAIN WHEN I HAVE TO PASS GAS". PT AAOX4, RESP E/U, NO DISTRESS NOTED AT THIS TIME. PER JACQUES RN, DR MAXWELL WILL BE HERE TONIGHT TO SEE PT. PT AWARE. WILL CONTINUE TO MONITOR
[2020-09-20 23:53] VITALS: BP 121/94
[2020-09-21 00:14] VITALS: BP 121/94
== END 2020-09-21 00:15 | disposition home or self-care (01) | DRG 392 ==
LOC: ED 21:38 → MU 09-19 00:55
PROVIDERS: Emergency Medicine; ADMIT Internal Medicine; ATTEND Internal Medicine
DX: K57.92 Diverticulitis of intestine, part unspecified, without perforation or abscess without bleeding (principal); F31.9 Bipolar disorder, unspecified; F43.10 Post-traumatic stress disorder, unspecified; F29 Unspecified psychosis not due to a substance or known physiological condition; D72.829 Elevated white blood cell count, unspecified; K52.89 Other specified noninfective gastroenteritis and colitis; Z20.828 Contact with and (suspected) exposure to other viral communicable diseases; Z79.899 Other long term (current) drug therapy; Z79.891 Long term (current) use of opiate analgesic; Z79.01 Long term (current) use of anticoagulants; Z80.7 Family history of other malignant neoplasms of lymphoid, hematopoietic and related tissues; Z80.42 Family history of malignant neoplasm of prostate; Z80.0 Family history of malignant neoplasm of digestive organs; Z88.8 Allergy status to other drugs, medicaments and biological substances; Z88.5 Allergy status to narcotic agent
CPT/HCPCS: C9113; G0378; J1956; J2060; J2270; J2405; J2550; J3010; J3490; J7030; U0003

== ENCOUNTER 2020-12-02 18:04 | Inpatient (IN) | payer BC, OTHER ==
[~2020-12-02] VITALS: Ht 182.9 cm; Wt 117.0 kg
[~2020-12-02 18:04] MED LIST changes: +AMBIEN CR12.5 MG PO
[2020-12-02 18:10] VITALS: Ht 182.9 cm; Wt 117.0 kg
[2020-12-02 18:42] LABS: BASOPHIL % 1.5 % (0.2-1.5); PLATELET COUNT 251 x10^3mcL (152-348); RED CELL DISTRIBUTION WIDTH 12.5 % (12.1-16.2)
[2020-12-02 18:57] LABS: CALCIUM 9.3 mg/dL (8.5-10.1); CARBON DIOXIDE 27.5 mmol/L (21-32); CHLORIDE SERUM 101 mmol/L (98-107); CREATININE SERUM 0.9 mg/dL (0.7-1.3); GFR1 > 60 mL/min; GLUCOSE SERUM 90 mg/dL (74-106); POTASSIUM SERUM 4.2 mmol/L (3.5-5.1); SODIUM SERUM 138 mmol/L (136-145)
[2020-12-02 19:01] LABS: ALBUMIN 3.9 g/dL (3.4-5.0); ALKALINE PHOSPHATASE 74 U/L (46-116); ALT/SGPT 33 U/L (16-63); AST/SGOT 23 U/L (15-37); BILIRUBIN TOTAL 0.6 mg/dL (0.20-1.00); LIPASE 167 IU/L (73-393); TOTAL PROTEIN, SERUM 7.7 g/dL (6.4-8.2)
[2020-12-02 22:37] VITALS: BP 133/94
[2020-12-03 05:12] VITALS: BP 101/70
[2020-12-03 06:23] LABS: BASOPHIL % 0.8 % (0.2-1.5); PLATELET COUNT 205 x10^3mcL (152-348); RED CELL DISTRIBUTION WIDTH 12.6 % (12.1-16.2)
[2020-12-03 06:54] LABS: CALCIUM 8.4 mg/dL (8.5-10.1); CARBON DIOXIDE 27.9 mmol/L (21-32); CHLORIDE SERUM 105 mmol/L (98-107); CREATININE SERUM 1.1 mg/dL (0.7-1.3); GFR1 > 60 mL/min; GLUCOSE SERUM 101 mg/dL (74-106); POTASSIUM SERUM 3.9 mmol/L (3.5-5.1); SODIUM SERUM 138 mmol/L (136-145)
[2020-12-03 08:16] VITALS: BP 102/58
[2020-12-03 12:00] VITALS: BP 107/72
[2020-12-03 16:08] VITALS: BP 104/64
[2020-12-03 19:42] VITALS: BP 113/76
[2020-12-04 05:18] VITALS: BP 93/61
[2020-12-04 06:36] LABS: BASOPHIL % 0.6 % (0.2-1.5); PLATELET COUNT 234 x10^3mcL (152-348); RED CELL DISTRIBUTION WIDTH 12.8 % (12.1-16.2)
[2020-12-04 06:46] LABS: CARBON DIOXIDE 25.1 mmol/L (21-32); CHLORIDE SERUM 104 mmol/L (98-107); CREATININE SERUM 1.1 mg/dL (0.7-1.3); GFR1 > 60 mL/min; GLUCOSE SERUM 73 mg/dL (74-106); POTASSIUM SERUM 4.5 mmol/L (3.5-5.1); SODIUM SERUM 138 mmol/L (136-145)
[2020-12-04 08:03] VITALS: BP 106/72
[2020-12-04 11:30] VITALS: BP 110/68
[2020-12-04 13:42] VITALS: BP 110/68
[2020-12-04 13:48] VITALS: BP 110/68
[2020-12-04 14:28] VITALS: BP 110/68
== END 2020-12-04 15:17 | disposition home or self-care (01) | DRG 392 ==
LOC: ED 18:04 → MU 19:41
PROVIDERS: Emergency Medicine; ADMIT Internal Medicine; ATTEND Internal Medicine
DX: K57.20 Diverticulitis of large intestine with perforation and abscess without bleeding (principal); K22.70 Barrett's esophagus without dysplasia; Z20.822 Contact with and (suspected) exposure to COVID-19; F31.9 Bipolar disorder, unspecified; F43.10 Post-traumatic stress disorder, unspecified; K66.8 Other specified disorders of peritoneum; G47.30 Sleep apnea, unspecified; D72.829 Elevated white blood cell count, unspecified; Z88.5 Allergy status to narcotic agent; Z88.8 Allergy status to other drugs, medicaments and biological substances; Z79.899 Other long term (current) drug therapy; Z79.891 Long term (current) use of opiate analgesic; Z79.01 Long term (current) use of anticoagulants; Z80.8 Family history of malignant neoplasm of other organs or systems; Z80.42 Family history of malignant neoplasm of prostate; Z84.89 Family history of other specified conditions
CPT/HCPCS: G0378; J1885; J1956; J2270; J2405; J2543; J2550; J3370; J3490; J7042